=== PATIENT | female | born 1955 | race African-American/Black ===

== ENCOUNTER 2020-02-01 08:42 | Emergency (ER) | payer MEDICARE, MEDICAID ==
[~2020-02-01] VITALS: Ht 167.6 cm; Wt 70.0 kg
[2020-02-01 08:47] VITALS: BP 0/0
[2020-02-01] MEDS ORDERED: AMIODARONE HCL 900 MG in DEXT 5% WATER 482 ML IV STA ×2 (09:07→09:12)
[2020-02-01] MEDS ORDERED: NOREPINEPHRINE 8 MG in DEXT 5% WATER 242 ML IV ONE ×4 (09:15)
== END 2020-02-01 13:16 | disposition expired ==
LOC: ER 08:42
DX: I46.9 Cardiac arrest, cause unspecified (principal)
CPT/HCPCS: 31500; 36556; 82962; 92950; 99291; 99292; J0282; J3490; J7060